=== PATIENT | female | born 1990 | race American Indian/Alaskan Native ===

== ENCOUNTER 2018-11-10 15:57 | Emergency (ER) | payer MEDICAID ==
--- NOTE | 2018-11-10 16:14 | Emergency Department Report ---
Chief Complaint: Fall Stated Complaint: FALL Time Seen by Provider: 11/10/18 16:09 - HPI History of Present Illness: This is a 28 y.o. female that presents with left knee and right hip pain. Patient fell down 4-5 concrete stairs of hotel. Denies loc, numbness or tingling, weakness, swelling, or erythema. - Exam Vital Signs: Vital Signs 11/10/18 16:09 Temperature 98.3 F Pulse Rate 91 H Respiratory 18 Rate Blood Pressure 130/75 O2 Sat by Pulse 100 Oximetry Physical Exam: Vital Signs 11/10/18 16:09 Temperature 98.3 F Pulse Rate 91 H Respiratory 18 Rate Blood Pressure 130/75 O2 Sat by Pulse 100 Oximetry MSE screening note: Focused history and physical exam performed. Due to findings the following was ordered: XR of right hip, left knee, & hcg. ACC for further evaluation. ED Disposition for MSE Condition: Stable
--- NOTE | 2018-11-10 18:32 | XRay Report ---
PROCEDURE: XR HIP 2-3V RT HISTORY: hip pain FINDINGS: AP view of the pelvis was acquired as well as AP and lateral views of the right hip. No fracture is seen in the pelvis or right hip. Hip joint space appears preserved bilaterally. No fazal tructive lesion is seen. IMPRESSION: No fracture is seen in the pelvis or right hip This document is electronically signed by Jacob John MD., November 10 2018 06:31:06 PM ET
--- NOTE | 2018-11-10 18:33 | XRay Report ---
PROCEDURE: XR KNEE 3V LT HISTORY: anterior knee pain FINDINGS: AP, lateral and oblique views of the left knee were acquired and demonstrate no fracture or malalignment of the left knee. Knee joint space appears preserved. No joint effusion is seen. IMPRESSION: No fracture is seen in the left knee This document is electronically signed by Jacob John MD., November 10 2018 06:31:46 PM ET
[2018-11-10] MEDS ORDERED: TYLENOL ONE (19:31)
[2018-11-10] MEDS ORDERED: TYLENOL PO ONE (20:07)
[2018-11-10 20:09] VITALS: BP 110/68
[2018-11-10] MEDS ORDERED: TORADOL IM ONE (20:15)
--- NOTE | 2018-11-10 20:51 | Emergency Department Report ---
ED Fall HPI - General Chief Complaint: Fall Stated Complaint: FALL Time Seen by Provider: 11/10/18 16:09 Source: patient, EMS Mode of arrival: Wheelchair - History of Present Illness Initial Comments: This is a 28 y.o. female that presents with left knee and right hip pain. Patient fell down 4-5 concrete stairs of hotel. Denies loc, numbness or tingling, weakness, swelling, or erythema. 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 Place Fall Occurred: street Loss of Consciousness: none Prolonged Down Time?: no Symptoms Prior to Fall: none Location: pelvis (left hip) Location - Extremities: Left: Knee Severity: moderate Severity scale (0 -10): 5 Quality: aching Context: tripped/slipped Associated Symptoms: denies: neck pain, numbness, weakness, chest paint, shortness of breath, abdominal pain, hematuria, lightheaded, vertigo, confusion - Related Data Previous Rx's Medication Instructions Recorded Last Taken Type Cyclobenzaprine [Flexeril] 10 mg PO TID PRN #30 tablet 11/10/18 Unknown Rx Menthol/Camphor [[place] 1 applicatio TP QID PRN #1 tube 11/10/18 Unknown Rx Ointment] Naproxen [Naprosyn TAB] 500 mg PO BID #30 tablet 11/10/18 Unknown Rx Allergies Allergy/AdvReac Type Severity Reaction Status Date / Time latex Allergy Swelling Verified 11/10/18 16:06 ED Review of Systems ROS: Stated complaint: FALL Other details as noted in HPI Constitutional: denies: chills, fever Eyes: denies: eye pain, eye discharge, vision change ENT: denies: ear pain, throat pain Respiratory: denies: cough, shortness of breath, wheezing Cardiovascular: denies: chest pain, palpitations Endocrine: no symptoms reported Gastrointestinal: denies: abdominal pain, nausea, diarrhea Genitourinary: denies: urgency, dysuria, discharge Musculoskeletal: other (left knee and hip pain ) Skin: lesions (small left anterior knee abrasion ). denies: rash Neurological: denies: headache, weakness, numbness, paresthesias, confusion, abnormal gait, vertigo Psychiatric: denies: anxiety, depression Hematological/Lymphatic: denies: easy bleeding, easy bruising ED Past Medical Hx - Past Medical History Previous Medical History?: No - Surgical History Additional Surgical History: C/S - Social History Smoking Status: Current Every Day Smoker Substance Use Type: None - Medications Home Medications: Home Medications Medication Instructions Recorded Confirmed Last Taken Type Cyclobenzaprine [Flexeril] 10 mg PO TID PRN #30 tablet 11/10/18 Unknown Rx Menthol/Camphor [[place] 1 applicatio TP QID PRN #1 tube 11/10/18 Unknown Rx Ointment] Naproxen [Naprosyn TAB] 500 mg PO BID #30 tablet 11/10/18 Unknown Rx ED Physical Exam - General Limitations: No Limitations General appearance: alert, in no apparent distress - Head Head exam: Present: normocephalic, normal inspection - Expanded Head Exam Expanded Head exam: Absent: laceration, abrasion, contusion, hematoma, racoon eyes, rapp's sign, general tenderness, tenderness of temporal artery, CSF rhinorrhea, CSF otorrhea - Eye Eye exam: Present: normal appearance, PERRL, EOMI Pupils: Present: normal accommodation - ENT ENT exam: Present: normal orophraynx, mucous membranes moist, TM's normal bilaterally - Neck Neck exam: Present: normal inspection, full ROM. Absent: tenderness, meningismus, lymphadenopathy, thyromegaly - Expanded Neck Exam Expanded Neck exam: Absent: tenderness (no posterior vertebral point tenderness ), midline deformity, anterior neck swelling, thyroid mass, carotid bruit, tracheal deviation - Respiratory Respiratory exam: Present: normal lung sounds bilaterally. Absent: respiratory distress, wheezes, rhonchi, chest wall tenderness - Cardiovascular Cardiovascular Exam: Present: regular rate, normal rhythm, normal heart sounds. Absent: systolic murmur, diastolic murmur, rubs, gallop - GI/Abdominal GI/Abdominal exam: Present: soft, normal bowel sounds. Absent: tenderness, rebound, bruit, hernia - Rectal Rectal exam: Present: deferred - Extremities Exam Extremities exam: Present: normal inspection, full ROM, tenderness (left antieror knee tenderness ), normal capillary refill. Absent: pedal edema, joint swelling, calf tenderness - Expanded Lower Extremity Exam Left Knee exam: Present: full ROM, tenderness, abrasion, full knee extension. Absent: swelling, laceration, ecchymosis, deformity, crepidus, dislocation, erythema, effusion, pain w/ pronation/supination, posterior draw sign, pain/laxity with valgus, pain/laxity with varus Lower Leg exam: Present: tenderness Ankle exam: Present: full ROM, tenderness. Absent: swelling Foot/Toe exam: Present: full ROM, tenderness. Absent: swelling Neuro vascular tendon exam: Present: no vascular compromise. Absent: pulse deficit, motor deficit, sensory deficit, tendon deficit Gait: Positive: observed and normal - Back Exam Back exam: Present: normal inspection, full ROM. Absent: tenderness, CVA tenderness (R), CVA tenderness (L), muscle spasm, paraspinal tenderness, vertebral tenderness, rash noted - Neurological Exam Neurological exam: Present: alert, oriented X3, CN II-XII intact, normal gait, reflexes normal. Absent: motor sensory deficit - Psychiatric Psychiatric exam: Present: normal affect, normal mood - Skin Skin exam: Present: warm, dry, intact, normal color. Absent: rash ED Course Vital Signs 11/10/18 11/10/18 11/10/18 16:09 19:32 19:35 Temperature 98.3 F 98.9 F Pulse Rate 91 H 75 Respiratory 18 16 16 Rate Blood Pressure 130/75 Blood Pressure 110/68 [Left] O2 Sat by Pulse 100 100 Oximetry ED Medical Decision Making - Radiology Data Radiology results: report reviewed, image reviewed normal knee and hip xray no fracture no soft tissue abnormality - Medical Decision Making The left knee abrasion left knee strain x-rays negative for knee and hip patient is a premature patient maintains full range of motion of knee there is no swelling or ecchymosis no pop no catch no drawer joint is stable plan loy wrap , nsaids, muscle relaxant , cryotherapy pt will follow up with ortho in 2- 3 days return to ed if symptoms worsen pt verbalized agreement and understanding of same. Critical care attestation.: If time is entered above; I have spent that time in minutes in the direct care of this critically ill patient, excluding procedure time. ED Disposition Clinical Impression: Fall Qualifiers: Encounter type: initial encounter Qualified Code(s): W19.XXXA - Unspecified fall, initial encounter Strain of knee and leg, left Qualifiers: Encounter type: initial encounter Qualified Code(s): S86.912A - Strain of unspecified muscle(s) and tendon(s) at lower leg level, left leg, initial encounter Disposition: TO HOME OR SELFCARE Is pt being admited?: No Does the pt Need Aspirin: No Condition: Stable Instructions: Knee Exercises (GEN), Knee Pain (ED), RICE Therapy (ED) Prescriptions: Cyclobenzaprine [Flexeril] 10 mg PO TID PRN #30 tablet PRN Reason: Muscle Spasm Naproxen [Naprosyn TAB] 500 mg PO BID #30 tablet Menthol/Camphor [[place] Ointment] 1 applicatio TP QID PRN #1 tube PRN Reason: pain Referrals: BASSAM ANDERSEN MD [Staff Physician] - 3-5 Days [place] DMITRY MARCUS MD [Primary Care Provider] - 3-5 Days Forms: Work/School Release Form(ED) Time of Disposition: 21:01
== END 2018-11-10 21:10 | disposition home or self-care (01) ==
LOC: ED 15:57
DX: S86.912A Strain of unspecified muscle(s) and tendon(s) at lower leg level, left leg, initial encounter (principal); M25.551 Pain in right hip; F17.200 Nicotine dependence, unspecified, uncomplicated; Z91.040 Latex allergy status; W10.9XXA Fall (on) (from) unspecified stairs and steps, initial encounter; Y93.89 Activity, other specified; Y92.59 Other trade areas as the place of occurrence of the external cause; Y99.8 Other external cause status
CPT/HCPCS: 36415; 73502; 73562; 84703; 96372; 99284; J1885

== ENCOUNTER 2020-06-09 11:26 | Inpatient (IN) | payer MEDICAID ==
[2020-06-09] MEDS ORDERED: LACTATED RINGERS 500 ML IV ONE (12:50)
[2020-06-09] MEDS: ONDANSETRON 4 MG/2 ML INJ IV PRN (12:54)
[2020-06-09] MEDS ORDERED: TERBUTALINE 1 MG/1 ML INJ SUB-Q SCH (13:00)
[2020-06-09] MEDS: MORPHINE 4 MG/1 ML INJ IV PRN ×2 (13:20→17:10)
[2020-06-09 13:31] LABS: Bilirubin,Urine NEG (Negative); Blood,Urine NEG (Negative); Color,Urine Yellow (Yellow); Mucus,Urine FEW /HPF; WBC,Urine < 1.0 /HPF (0.0-6.0)
[2020-06-09 13:37] LABS: Amphetamine Screen,Urine Negative; Benzodiazepines Screen,Urine Negative; Cocaine Screen,Urine Negative; Methadone Screen,Urine Negative; Opiate Screen,Urine Negative
[2020-06-09 14:03] LABS: Cannabinoid Screen,Urine Positive
[2020-06-09] MEDS ORDERED: PROMETHAZINE 25 MG RECT SUPP PR ONE (14:50)
--- NOTE | 2020-06-09 15:07 | History and Physical Report ---
History of Present Illness Date of examination: 06/09/20 Chief complaint: refractory new onset acute nausea and vomiting History of present illness: 29yo at 29+0/7 weeks by LNURBANO with SERGIO 08/25/2019. Positive FFN on admission. 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 Previous delivery: baby with omphalocele and cardiac defect LGSIL Nausea and vomiting Prior sectionx3, desires repeat Uterine Synechia per [facility] Labs: A/positive H/H 12.4/38.3 LSIL +ve HPV Rubella immune VDRL NR HBsAg negative HIV negative PTL 361 GC/Chlamydia negative Trich negative GCT 106 Past History Past Surgical History: section (prior c/sectionx3) Family/Genetic History: cancer Social history: no significant social history - Obstetrical History Expected Date of Delivery: 08/25/20 Actual Gestation: 29 Week(s) 0 Day(s) : 7 Medications and Allergies Allergies Allergy/AdvReac Type Severity Reaction Status Date / Time latex Allergy Swelling Verified 11/10/18 16:06 Home Medications Medication Instructions Recorded Confirmed Last Taken Type Famotidine [Pepcid] 20 mg PO BID #30 tablet 02/18/20 06/09/20 06/09/20 Rx Ondansetron [Zofran ODT TAB] 4 mg PO Q8HR PRN #30 tab.rapdis 02/18/20 06/09/20 06/09/20 Rx Active Meds: Active Medications Morphine Sulfate (Morphine) 4 mg IV Q4H PRN PRN Reason: Pain , Severe (7-10) Last Admin: 06/09/20 13:20 Dose: 4 mg Documented by: Ondansetron HCl (Zofran) 8 mg IV Q8H PRN PRN Reason: Nausea And Vomiting Last Admin: 06/09/20 12:54 Dose: 8 mg Documented by: Terbutaline Sulfate (Brethine) 0.25 mg SUB-Q Q20MIN CECILIA Stop: 06/11/20 13:01 Review of Systems All systems: negative (nausea and vomiting) - Vital Signs Vital signs: Vital Signs Temp Pulse Resp BP Pulse Ox 98.7 F 88 20 144/81 99 06/09/20 12:45 06/09/20 12:45 06/09/20 12:45 06/09/20 12:45 06/09/20 12:45 Temp Pulse Resp BP Pulse Ox 98.7 F 90 18 136/69 100 06/09/20 12:45 06/09/20 15:00 06/09/20 13:20 06/09/20 13:27 06/09/20 15:00 - Physical Exam Breasts: Positive: deferred Lungs: Positive: Clear to auscultation Abdomen: Positive: normal appearance, normal bowel sounds Genitourinary (Female): Positive: normal external genitalia Extremities: Positive: normal Deep Tendon Reflex Grade: Normal +2 - Obstetrical FHR: category 1 Uterine Contraction Monitor Mode: External Uterine Contraction Frequency (min): q2 Uterine Contraction Pattern: Regular Results Result Diagrams: 06/09/20 19:37 All other labs normal. Assessment and Plan IUP at 29+0/7 weeks acute nausea and vomiting contractions THC positive Elevated Blood Pressure preio c/sectionx3 Plan for admission IV fluids reglan zofran/phenergan/pepcid COVID testing Magnesium sulfate Steroids abx PIH workup US maternal/ well being reassuring overall Grey Alicia MD
[2020-06-09] MEDS ORDERED: FAMOTIDINE 20 MG/2 ML INJ IV ONE (15:19)
[2020-06-09] MEDS ORDERED: LACTATED RINGERS 1,000 ML IV SCH (16:00)
[2020-06-09] MEDS ORDERED: MAGNESIUM SULFATE 4 GM/100 ML BAG IV ONE (16:00)
[2020-06-09] MEDS ORDERED: MAGNESIUM SULFATE 40GM/1000ML 40 GM/1,000 ML BAG IV SCH (16:00)
[2020-06-09] MEDS ORDERED: DOCUSATE SODIUM 100 MG CAP PO PRN (16:00)
[2020-06-09] MEDS ORDERED: ACETAMINOPHEN 325 MG TAB PO PRN (16:00)
[2020-06-09] MEDS: BETAMET ACET/BETAMET NA PH 6 MG/ML INJ 5 ML MDV IM SCH (16:16)
[2020-06-09] MEDS: MORPHINE 4 MG/1 ML INJ IM PRN ×2 (17:22→21:13)
[2020-06-09] MEDS ORDERED: hydrOXYzine HCL 100 MG/2 ML INJ IM ONE (18:00)
[2020-06-09] MEDS ORDERED: BICITRA ORAL LIQD 30ML PO ONE (18:01)
[2020-06-09 20:34] LABS: Alanine Aminotransferase 14 units/L (7-56); Uric Acid 3.4 mg/dL (3.5-7.6)
[2020-06-09 20:35] LABS: Hematocrit 31.7 % (30.3-42.9); Hemoglobin 10.6 gm/dl (10.1-14.3); Mean Corpuscular HGB Conc 33 % (30-34); Mean Corpuscular Volume 98 fl (79-97); Platelet Count 258 K/mm3 (140-440); Red Blood Count 3.23 M/mm3 (3.65-5.03)
[2020-06-09] MEDS ORDERED: BICITRA ORAL LIQD 30ML ONE (20:55)
[2020-06-09] MEDS ORDERED: BICITRA ORAL LIQD 30ML PO PRN (20:57)
[2020-06-09 22:03] LABS: Band Neutrophils # (Manual) 0.3 K/mm3; Basophils % (Manual) 0 % (0.0-1.8); Eosinophils % (Manual) 0 % (0.0-4.3); Total Cells Counted 100
[2020-06-09 22:04] LABS: Platelet Estimate Consistent w Auto; RBC Morphology Normal
[2020-06-09] MEDS ORDERED: ceFAZolin/STERILE WATER 2 GM/20 ML SYRINGE IV ONE (23:00)
[2020-06-09] MEDS ORDERED: MORPHINE 4 MG/1 ML INJ ONE (23:00)
[2020-06-09] MEDS ORDERED: ceFAZolin/Water 2 GM/20 ML 2 GM/20 ML SYRINGE IV ONE ×2 (23:01)
[2020-06-10] MEDS ORDERED: PRENATAL VIT27-FE FUMARATE-FOLIC ACID VIT TAB PO SCH (10:00)
[2020-06-10] MEDS: ONDANSETRON 4 MG/2 ML INJ IV PRN (13:00)
[2020-06-10] MEDS: BETAMET ACET/BETAMET NA PH 6 MG/ML INJ 5 ML MDV IM SCH (15:30)
--- NOTE | 2020-06-10 16:42 | Ultrasound Report ---
ULTRASOUND OBSTETRIC LIMITED INDICATION / CLINICAL INFORMATION: labor. Clinical Gestational Age (GA) in weeks, days: 29, 0 TECHNIQUE: Transabdominal. COMPARISON: Ultrasound dated 02/17/20 FINDINGS: HEART RATE (beats per minute): 140 AMNIOTIC FLUID INDEX (cm) = 17.4 (normal = 7-24 cm) PRESENTATION: Cephalic. ADDITIONAL FINDINGS: Placenta is posterofundal and grade 1-2. IMPRESSION: 1. No significant abnormality. Signer Name: Francy Boss MD Signed: 06/10/2020 2:17 AM Workstation Name: [id number]
[2020-06-10] MEDS ORDERED: BICITRA ORAL LIQD 30ML ONE (17:00)
[2020-06-10] MEDS ORDERED: MORPHINE 4 MG/1 ML INJ ONE (17:00)
[2020-06-10] MEDS ORDERED: ONDANSETRON 4 MG/2 ML INJ ONE (17:00)
[2020-06-10 17:05] VITALS: BP 108/56
--- NOTE | 2020-06-10 17:40 | Discharge Summary ---
Providers - Providers Date of Admission: 06/09/20 15:14 Date of discharge: 06/10/20 Attending physician: MILADIS MOCTEZUMA MD Primary care physician: MILADIS MOCTEZUMA MD Hospitalization Reason for admission: labor, other (N/V) Hospital course: 29 yo at 29w1d presenting with N/V, MARIA ELENA chest discomfort, and contractions. Contractions improved with IVF> +FFN on inital assessment but no evidence of current labor complaints. MARIA ELENA discomfort improved with bicitra, maalox, ompreprazole. Favor GERD. Discharged on Maalox, famotidine, colace. Condition at discharge: Good Disposition: DC-01 TO HOME OR SELFCARE - Discharge Diagnoses (1) GERD (gastroesophageal reflux disease) Status: Acute Qualifiers: Esophagitis presence: without esophagitis Qualified Code(s): K21.9 - Gastro-esophageal reflux disease without esophagitis Plan - Provider Discharge Summary Activity: routine Diet: routine Instructions: routine Additional instructions: [] Smoking cessation referral if applicable(refer to patient education folder for contact #) [] Refer to [facility]'s [facility] Booklet Call your doctor immediately for: * Fever > 100.5 * Heavy vaginal bleeding ( >1 pad per hour) * Severe persistent headache * Shortness of breath * Reddened, hot, painful area to leg or breast * Drainage or odor from incision. * Keep incision clean and dry at all times and follow doctor's instructions regarding bathing/showering - Follow up plan Follow up: MILADIS MOCTEZUMA MD [Primary Care Provider] - 7 Days
[2020-06-10] MEDS ORDERED: PANTOPRAZOLE 40 MG INJ IV SCH (20:00)
--- NOTE | 2020-06-11 08:19 | Ultrasound Report ---
ULTRASOUND BIOPHYSICAL PROFILE ULTRASOUND OB LIMITED INDICATION: WELL BEING TECHNIQUE: Transabdominal ultrasound imaging. COMPARISON: 06/09/2020 COMMENT: This examination is just presented to me for interpretation due to technical factors at the hospital. A preliminary worksheet/report was sent to the ordering physician on the day of the exam. FINDINGS: breathing movement = 2 Gross body movement = 2 tone = 2 Qualitative amniotic fluid volume = 2 Total biophysical score = 8/8 Amniotic fluid index is 18.6 cm. Presentation is cephalic. heart rate is 126 beats per minute. IMPRESSION: biophysical profile equals 8/8. Signer Name: Vargas Fierro Jr, MD Signed: 06/11/2020 8:15 AM Workstation Name: [id number]
== END 2020-06-10 16:00 | disposition home or self-care (01) | DRG 781 ==
LOC: TRG 11:26 → APU 11:59 → LD 15:14 → TRG 15:14 → LD 16:28
PROVIDERS: ADMIT Obstetrics & Gynecology; ATTEND Obstetrics & Gynecology
DX: O99.613 Diseases of the digestive system complicating pregnancy, third trimester (principal); O99.323 Drug use complicating pregnancy, third trimester; Z3A.29 29 weeks gestation of pregnancy; K21.9 Gastro-esophageal reflux disease without esophagitis; O60.03 Preterm labor without delivery, third trimester; Z20.828 Contact with and (suspected) exposure to other viral communicable diseases
CPT/HCPCS: 36415; 76815; 76819; 80307; 81001; 82565; 82731; 83615; 83735; 84450; 84460; 84550; 85007; 85025; 86850; 86900; 86901; G0378; C9113; J0690; J0702; J2270; J2405; J3410; J3475; J7120; U0003

== ENCOUNTER 2020-08-14 14:46 | Outpatient (CLI) | payer MEDICAID ==
[2020-08-14 15:09] VITALS: BP 100/59
[2020-08-14] MEDS ORDERED: LACTATED RINGERS 500 ML IV SCH (15:45)
[2020-08-14] MEDS ORDERED: LACTATED RINGERS 1,000 ML IV ONE (16:47)
[2020-08-14] MEDS ORDERED: LACTATED RINGERS 500 ML IV ONE (17:42)
[2020-08-14] MEDS: TERBUTALINE 1 MG/1 ML INJ SUB-Q SCH ×2 (17:54→18:25)
== END 2020-08-14 19:25 | disposition home or self-care (01) ==
LOC: APU 14:46 → TRG 14:46
PROVIDERS: ATTEND Obstetrics & Gynecology
DX: O21.2 Late vomiting of pregnancy (principal); R10.9 Unspecified abdominal pain; O62.9 Abnormality of forces of labor, unspecified; Z3A.38 38 weeks gestation of pregnancy
CPT/HCPCS: 59025; 96360; 96372; J3105; J7120; 96361

== ENCOUNTER 2020-08-18 09:06 | Inpatient (IN) | payer MEDICAID ==
--- NOTE | 2020-08-18 09:22 | History and Physical Report ---
History of Present Illness Date of examination: 08/18/20 Date of admission: 08/18/20 09:06 Chief complaint: elective repeat section multiparity, desires surgical sterilization History of present illness: 30yo at 30.0 weeks, previous c/sectionx3 for elective repeat section Multiparity, desires surgical sterilization pericardial effusion (4.8mm per [facility]0. and mid VSD per Indu(records in chart). 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 Family/Genetic History: congenital heart defect Social history: no significant social history - Obstetrical History Expected Date of Delivery: 08/25/20 Actual Gestation: 39 Week(s) 0 Day(s) : 7 Medications and Allergies Allergies Allergy/AdvReac Type Severity Reaction Status Date / Time latex Allergy Swelling Verified 11/10/18 16:06 Home Medications Medication Instructions Recorded Confirmed Last Taken Type Famotidine [Pepcid] 20 mg PO BID #30 tablet 02/18/20 06/09/20 06/09/20 Rx Ondansetron [Zofran ODT TAB] 4 mg PO Q8HR PRN #30 tab.rapdis 02/18/20 06/09/20 06/09/20 Rx Active Meds: Active Medications Citric Acid/Sodium Citrate (Bicitra Oral Liqd 30ml) 30 ml PO ONCE ONE Stop: 08/18/20 09:20 Famotidine (Famotidine 20 Mg/2 Ml Inj) 20 mg IV ONCE ONE Stop: 08/18/20 09:20 Lactated Ringer's (Lactated Ringers) 1,000 mls @ 2,250 mls/hr IV PREOP CECILIA Stop: 08/19/20 09:57 Oxytocin/Sodium Chloride (Pitocin/Ns 30 Unit/500ml) 30 units in 500 mls @ 0 mls/hr IV TITR CECILIA; Protocol Cefazolin Sodium (Ancef/Sterile Water 2 Gm/20 Ml) 2 gm in 20 mls @ 80 mls/hr IV PREOP NR; Protocol Metoclopramide HCl (Metoclopramide 10 Mg/2 Ml Inj) 10 mg IV ONCE ONE Stop: 08/18/20 09:20 - Physical Exam Cardiovascular: Regular rate Lungs: Positive: Clear to auscultation Abdomen: Positive: normal appearance Uterus: Positive: other (FH 38cm) Anus/Rectum: Positive: normal perianal skin Deep Tendon Reflex Grade: Normal +2 - Obstetrical FHR: category 1 Results All other labs normal. 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
[2020-08-18] MEDS ORDERED: METOCLOPRAMIDE 10 MG/2 ML INJ IV SCH (09:30)
[2020-08-18] MEDS ORDERED: BICITRA ORAL LIQD 30ML PO SCH (09:30)
[2020-08-18] MEDS ORDERED: FAMOTIDINE 20 MG/2 ML INJ IV SCH (09:30)
[2020-08-18 09:54] LABS: Basophils # (Auto) 0.1 K/mm3 (0.0-0.1); Basophils % (Auto) 0.8 % (0.0-1.8); Eosinophils # (Auto) 0.2 K/mm3 (0.0-0.4); Eosinophils % (Auto) 1.3 % (0.0-4.3); Hematocrit 35.8 % (30.3-42.9); Lymphocytes # (Auto) 2.8 K/mm3 (1.2-5.4); Lymphocytes % (Auto) 21.4 % (13.4-35.0); Mean Corpuscular HGB Conc 34 % (30-34); Mean Corpuscular Volume 98 fl (79-97); Monocytes # (Auto) 0.9 K/mm3 (0.0-0.8); Monocytes % (Auto) 6.8 % (0.0-7.3); Platelet Count 265 K/mm3 (140-440); Red Blood Count 3.65 M/mm3 (3.65-5.03)
[2020-08-18] MEDS: LACTATED RINGERS 1,000 ML IV SCH ×2 (09:58→10:43)
[2020-08-18] MEDS ORDERED: ceFAZolin/Water 2 GM/20 ML 2 GM/20 ML SYRINGE IV NR (10:00)
[2020-08-18] MEDS ORDERED: OXYTOCIN DRIP 30 UNITS/500 ML BAG IV SCH ×2 (10:00→13:00)
--- NOTE | 2020-08-18 10:55 | Anesthesia Day of Surgery ---
Anesthesia Day of Surgery - Day of Surgery Patient Examined: Yes Patient H&P Reviewed: Yes Patient is NPO: Yes Beta Blockers: No Cardiac Clearance: No Pulmonary Clearance: No Taras's Test: N/A
[2020-08-18] MEDS ORDERED: ONDANSETRON 4 MG/2 ML INJ IV PRN ×2 (10:57→12:46)
[2020-08-18] MEDS ORDERED: NALOXONE 0.4 MG/1 ML INJ IV PRN ×2 (10:57→12:46)
--- NOTE | 2020-08-18 10:57 | Anesthesia Consultation ---
Anesthesia Consult and Med Hx Date of service: 08/18/20 - Airway Anesthetic Teeth Evaluation: Poor ROM Head & Neck: Adequate Mental/Hyoid Distance: Adequate Mallampati Class: Class II Intubation Access Assessment: Probably Good - Pulmonary Exam CTA: Yes - Cardiac Exam Cardiac Exam: RRR - Pre-Operative Health Status ASA Pre-Surgery Classification: ASA2 Proposed Anesthetic Plan: Spinal - Pulmonary Hx Smoking: Yes (stop 9 months ago) Hx Asthma: No Hx Respiratory Symptoms: No SOB: No COPD: No Home Oxygen Therapy: No Hx Pneumonia: No Hx Sleep Apnea: No - Cardiovascular System Hx Hypertension: No Hx Coronary Artery Disease: No Hx Heart Attack/AMI: No Hx Angina: No Hx Percutaneous Transluminal Coronary Angioplasty (PTCA): No Hx Cardia Arrhythmia: No Hx Pacemaker: No Hx Internal Defibrillator: No Hx Valvular Heart Disease: No Hx Heart Murmur: No Hx Peripheral Vascular Disease: No - Central Nervous System Hx Neuromuscular Disorder: No Hx Seizures: No CVA: No Hx Back Pain: Yes Hx Psychiatric Problems: No - Gastrointestinal Hx Ulcer: No Hx Gastroesophageal Reflux Disease: Yes - Endocrine Hx Renal Disease: No Hx End Stage Renal Disease: No Hx Cirrhosis: No Hx Liver Disease: No Hx Insulin Dependent Diabetes: No Hx Non-Insulin Dependent Diabetes: No Hx Thyroid Disease: No Hx Hypothyroidism: No Hx Hyperthyroidism: No - Hematic Hx Anemia: Yes Hx Sickle Cell Disease: No - Other Systems Hx Alcohol Use: No Hx Substance Use: No Hx Obesity: No
[2020-08-18] MEDS ORDERED: HYDROmorphone 1 MG/1 ML INJ IV PRN (11:00)
--- NOTE | 2020-08-18 11:20 | Procedure Note ---
OB Delivery Note - Delivery Date of Delivery: 08/18/20 Surgeon: MILADIS MOCTEZUMA Estimated blood loss: other (600ml) - Section Preop diagnosis: repeat , desires sterilization Postop diagnosis: same (delivered) section procedure: repeat low transverse, bilateral tubal ligation Disposition: PACU Complications: none Narrative: Preop diagnosis: IUP at 39.0 weeks, previous section x3, multiparity desires surgical sterilization Postop diagnosis: Same, delivered Procedure: Repeat low transverse section via Pfannenstiel incision, bilateral tubal ligation and modified Reardan fashion Surgeon: Dr. Miladis Moctezuma Anesthesia spinal Complications none EBL 600 ml IV fluids 1200 mL Urine output 200 mL, clear Drains Del Toro to gravity Findings: Viable male with weight 2770gms and 8/9., normal uterus tubes and ovaries bilaterally Procedure: Patient was consented in OB [facility], taken to the operating room where she received excellent spinal anesthesia. She was then placed in the dorsal supine position with a leftward tilt. The abdomen was prepped and draped in a sterile fashion, and a timeout was verified. Adequate anesthesia was confirmed prior to the skin incision. A Pfannenstiel skin incision was made with a scalpel taken down to the underlying structures and the fascia was incised in the midline. The incision was extended laterally with curved Contreras scissors, the superior and inferior aspects of the fascial incisions were grasped with Nakita clamps and the rectus muscles dissected sharply. The abdomen was entered bluntly in the midline carried down inferiorly with good visualization of the bladder. The vesicouterine peritoneum was tented with Nauruan forceps and incised in the midline with Metzenbaum scissors and the vesicouterine peritoneum taken down sharply. Bladder blade was inserted, the uterine incision was made sharply with a scalpel. The inferior and superior aspect of the uterine incisions were extended bluntly, the baby's head was delivered atraumatically. The remainder of the delivery was atraumatic, a loose nuchal cord x2 was reduced during delivery. The cord was clamped and cut and baby handed to waiting NICU team. An intact placenta with three-vessel cord delivered manually. The uterus was then cleared of all clots and debris and the uterus exteriorized. The uterine incision was closed with 0 chromic with excellent hemostasis. The fallopian tubes were bilaterally suture ligated in modified Reardan fashion. The abdomen was then irrigated with warm normal saline and the uterus placed back into the abdomen atraumatically. A second look at the uterine incision assured hemostasis. The peritoneum was closed with 3-0 Vicryl, the rectus muscles approximated with 3-0 Vicryl, and the fascia closed with 0 Vicryl in the usual fashion. The skin closed with alisa as patient was moving on the OR table. A pressure dressing was applied. All sponge needle and instrument counts were correct x2. There were no complications. Mom and baby stable to the recovery area. EBL 600 mL Grey Moctezuma MD
[2020-08-18] MEDS ORDERED: SODIUM CHLORIDE 0.9% IRR 1,500 ML BOTTLE IR ONE (11:40)
[2020-08-18] MEDS ORDERED: WATER FOR IRRIG STERILE 1,500 ML BOTTLE IR ONE (11:40)
[2020-08-18] MEDS ORDERED: KETAMINE/STERILE WATER 50 MG/ML SYRINGE ONE (11:43)
[2020-08-18] MEDS ORDERED: MIDAZOLAM 5 MG/5 ML INJ MDV IV ONE (11:44)
[2020-08-18] MEDS ORDERED: propofoL 200 MG/20 ML VIAL IV ONE (12:11)
[2020-08-18] MEDS ORDERED: LANOLIN/ZINC/DIMETHICONE (LANSINOH) 7 GM TP PRN (12:46)
[2020-08-18] MEDS ORDERED: MORPHINE 2 MG/1 ML INJ IV PRN (12:46)
[2020-08-18] MEDS ORDERED: WITCH HAZEL/ GLYCERIN PAD TP PRN (12:46)
--- NOTE | 2020-08-18 12:51 | Progress Note ---
Spinal Anesthesia Block - Spinal Anesthesia Block Start Time: : Stop Time: : Performed by:: JEREMÍAS CORRIGAN Procedure: Patient IDed, H&P reviewed, all questions and concerns were answered, and consent was signed. Timeout was performed at bedside. Patient in sitting position. Sterile prep and drape was performed. [3] ml of 1% lidocaine skin wheal at L[3]- L [4]. Needle introducer advanced. 25 gauge spinal needle advanced. Clear, free flowing CSF. negative blood, negative paresthesia. Spinal dose given. All needles removed. Patient tolerated procedure.
--- NOTE | 2020-08-18 12:52 | Post Anesthesia Evaluation ---
- Post Anesthesia Evaluation Patient Participated: Yes Airway Patent: Yes Stable Respiratory Function: Yes Nausea/Vomiting: No Temp > 96.8F: Yes Pain Manageable: Yes Adequeate Hydration: Yes Anesthesia Complications: No Block Receding Appropriately: Yes Patient on Ventilator: No
--- NOTE | 2020-08-18 12:52 | Progress Note ---
Subjective Date of service: 08/18/20 Principal diagnosis: Ultrasound Guided Bilateral TAP Block Interval history: Patient consented for TAP block for post surgical pain management. Patient identified, monitors placed, and time out performed. TAP identified bilaterally via ultrasound. Skin prepped bilaterally with [chlorhexidine] and [22g stimuplex] needle advanced to the TAP. [Marcaine 0.22% 35ml] injected under ultrasound guidance on the [left] side. [Marcaine 0.22% 35ml] injected under ultrasound guidance on the [right] side. Negative aspiration every 5mL, No change in heart rate or rhythm. Patient tolerated the procedure well. No apparent complications seen Objective - Constitutional Vitals: Vital Signs - 12hr 08/18/20 08/18/20 08/18/20 10:03 10:04 10:08 Temperature 98.7 F Pulse Rate 69 68 71 Respiratory 16 Rate Blood Pressure 112/58 Blood Pressure 112/58 [Left] O2 Sat by Pulse 99 99 97 Oximetry 08/18/20 08/18/20 08/18/20 10:13 10:18 10:23 Temperature Pulse Rate 77 89 79 Respiratory Rate Blood Pressure Blood Pressure [Left] O2 Sat by Pulse 100 100 100 Oximetry 08/18/20 08/18/20 08/18/20 10:28 10:33 10:38 Temperature Pulse Rate 84 71 81 Respiratory Rate Blood Pressure Blood Pressure [Left] O2 Sat by Pulse 99 100 99 Oximetry 08/18/20 08/18/20 08/18/20 10:43 10:48 10:53 Temperature Pulse Rate 70 73 76 Respiratory Rate Blood Pressure Blood Pressure [Left] O2 Sat by Pulse 100 99 99 Oximetry 08/18/20 08/18/20 10:58 11:03 Temperature Pulse Rate 75 76 Respiratory Rate Blood Pressure Blood Pressure [Left] O2 Sat by Pulse 97 99 Oximetry - Labs CBC & Chem 7: 08/18/20 09:45 Labs: Abnormal lab results 08/18/20 Range/Units 09:45 WBC 13.3 H (4.5-11.0) K/mm3 MCV 98 H (79-97) fl MCH 33 H (28-32) pg [place] # (Auto) 0.9 H (0.0-0.8) K/mm3 Seg Neutrophils # 9.2 H (1.8-7.7) K/mm3
[2020-08-18] MEDS: MORPHINE 4 MG/1 ML INJ IV PRN ×3 (14:28→22:23)
[2020-08-18] MEDS ORDERED: KETOROLAC 30 MG/1 ML INJ IV ONE (15:18)
[2020-08-18] MEDS: HYDROcodone/ACETAMINOPHEN 5-325 MG TAB PO PRN (21:34)
[2020-08-19 02:13] LABS: Hematocrit 30.9 % (30.3-42.9); Hemoglobin 10.3 gm/dl (10.1-14.3)
[2020-08-19] MEDS: MORPHINE 4 MG/1 ML INJ IV PRN ×2 (02:39→06:21)
[2020-08-19] MEDS: HYDROcodone/ACETAMINOPHEN 5-325 MG TAB PO PRN ×5 (04:31→23:38)
--- NOTE | 2020-08-19 10:58 | Progress Note ---
Assessment and Plan A: S/P repeat LTCS with BTL p: Continue monitoring with routine pp orders Encourage ambulation D/C home in 24-48 hours if stable Subjective - Subjective Date of service: 08/19/20 Principal diagnosis: Ultrasound Guided Bilateral TAP Block Patient reports: appetite normal, voiding normally, pain well controlled, ambulating normally : doing well, bottle feeding Objective - Vital Signs Latest vital signs: Vital Signs Temp Pulse Resp BP BP Pulse Ox 08/19/20 08:50 98.5 F 71 18 116/65 98 08/19/20 04:35 97.9 F 75 18 108/58 100 08/19/20 00:41 98.0 F 61 16 113/56 100 08/18/20 21:06 98.1 F 61 16 112/64 100 08/18/20 18:40 20 08/18/20 16:45 98.2 F 74 18 111/72 99 08/18/20 15:30 18 08/18/20 14:28 18 08/18/20 14:19 98.2 F 75 18 105/70 99 08/18/20 13:50 97.7 F 68 20 111/74 98 08/18/20 13:40 97.5 F L 69 20 111/69 98 08/18/20 13:25 68 20 106/63 98 08/18/20 13:10 65 18 115/73 99 08/18/20 12:55 69 20 111/61 98 08/18/20 12:50 69 20 116/60 98 08/18/20 12:44 97.2 F L 69 20 117/64 98 08/18/20 11:03 76 99 08/18/20 10:58 75 97 Intake and Output 08/18/20 08/19/20 08/19/20 22:59 06:59 14:59 Intake Total 120 840 Output Total 800 1700 Balance -680 -860 Intake: Oral 120 Intake, Free Water 840 Output: Urine 800 1700 Indwelling Catheter 800 500 Void 1200 Other: Total, Intake Amount 120 Total, Output Amount 800 800 # Voids Void 2 - Exam Breasts: Present: normal Abdomen: Present: normal appearance, soft, normal bowel sounds, other (passing gas) Vulva: both: normal Uterus: Present: normal, firm, fundal height below umbilicus Extremities: Present: normal Incision: Present: normal, dry, intact, dressed - Labs Labs: Abnormal lab results 08/18/20 Range/Units 16:58 POC Glucose 36 L (70-105) mg/dL
[2020-08-19] MEDS: FAMOTIDINE 20 MG TAB PO SCH ×2 (13:53→22:00)
[2020-08-19] MEDS ORDERED: MAGNESIUM HYDROXIDE (MOM) ORAL LIQD UDC PO PRN (21:34)
[2020-08-19] MEDS: SIMETHICONE 80 MG CHEW TAB PO PRN (21:55)
[2020-08-19] MEDS: IBUPROFEN 600 MG TAB PO PRN (21:55)
[2020-08-20] MEDS: IBUPROFEN 600 MG TAB PO PRN ×2 (03:40→09:58)
[2020-08-20] MEDS: SIMETHICONE 80 MG CHEW TAB PO PRN ×2 (06:36→12:07)
[2020-08-20] MEDS: HYDROcodone/ACETAMINOPHEN 5-325 MG TAB PO PRN ×2 (06:36→12:07)
[2020-08-20] MEDS: FAMOTIDINE 20 MG TAB PO SCH (09:58)
--- NOTE | 2020-08-20 12:28 | Progress Note ---
Assessment and Plan A: POD #2 [place] P: Follow Routine PostOp Orders D/C Home today per patient request RTO in One week Subjective - Subjective Date of service: 08/20/20 Principal diagnosis: Ultrasound Guided Bilateral TAP Block Patient reports: appetite normal, voiding normally, pain well controlled, flatus, ambulating normally : doing well, bottle feeding (and ) Objective - Vital Signs Latest vital signs: Vital Signs Temp Pulse Resp BP BP Pulse Ox 08/20/20 09:58 18 08/20/20 08:31 98.6 F 67 18 116/62 100 08/20/20 00:51 98.0 F 73 18 113/50 98 08/19/20 16:55 98.2 F 82 18 118/73 98 Intake and Output 08/19/20 08/20/20 08/20/20 22:59 06:59 14:59 Intake Total 120 Output Total 350 Balance -230 Intake: Oral 120 Output: Urine 350 Void 350 Other: Total, Intake Amount 120 Total, Output Amount 350 # Voids Void 3 - Exam Breasts: Present: normal Cardiovascular: Present: Regular rate Lungs: Present: Clear to auscultation, Normal air movement Abdomen: Present: normal appearance, soft, normal bowel sounds Uterus: Present: normal, firm, fundal height below umbilicus Extremities: Present: normal Incision: Present: normal, dry, intact, other (Staple in Place)
--- NOTE | 2020-08-20 12:29 | Discharge Summary ---
Providers - Providers Date of Admission: 08/18/20 09:06 Date of discharge: 08/20/20 Attending physician: MILADIS MOCTEZUMA MD Primary care physician: MILADIS MOCTEZUMA MD Hospitalization Reason for admission: section Delivery: Procedure: bilateral tubal ligation, repeat low transverse Episiotomy: none Laceration: none Incision: normal, dry, intact Other procedures: none complications: none Discharge diagnosis: IUP at term delivered [place] baby: male Condition at discharge: Good Disposition: DC-01 TO HOME OR SELFCARE Plan - Discharge Medications Prescriptions: Ibuprofen [Motrin] 600 mg PO Q8H PRN #60 tablet PRN Reason: Pain oxyCODONE /ACETAMINOPHEN [Percocet 5/325] 1 tab PO Q6HR PRN #20 tablet PRN Reason: Pain - Provider Discharge Summary Activity: routine, no sex for 6 weeks, no heavy lifting 4 weeks, no strenuous exercise Diet: routine Instructions: routine Additional instructions: [] Smoking cessation referral if applicable(refer to patient education folder for contact #) [] Refer to [facility] Booklet Call your doctor immediately for: * Fever > 100.5 * Heavy vaginal bleeding ( >1 pad per hour) * Severe persistent headache * Shortness of breath * Reddened, hot, painful area to leg or breast * Drainage or odor from incision. * Keep incision clean and dry at all times and follow doctor's instructions regarding bathing/showering - Follow up plan Follow up: MILADIS MOCTEZUMA MD [Primary Care Provider] - 7 Days Forms: [facility] Discharge Summary
[2020-08-20 15:19] VITALS: BP 122/75
== END 2020-08-20 14:35 | disposition home or self-care (01) | DRG 765 ==
LOC: APU 09:06 → OB 13:30
PROVIDERS: ADMIT Obstetrics & Gynecology; ATTEND Obstetrics & Gynecology
PROC: 10D00Z1 Extraction of Products of Conception, Low, Open Approach (ICD-10-PCS; principal; 2020-08-18)
PROC: 0UB70ZZ Excision of Bilateral Fallopian Tubes, Open Approach (ICD-10-PCS; 2020-08-18)
PROC: 3E0T3BZ Introduction of Anesthetic Agent into Peripheral Nerves and Plexi, Percutaneous Approach (ICD-10-PCS; 2020-08-18)
DX: O34.219 Maternal care for unspecified type scar from previous cesarean delivery (principal); O98.32 Other infections with a predominantly sexual mode of transmission complicating childbirth; O99.02 Anemia complicating childbirth; A60.09 Herpesviral infection of other urogenital tract; Z3A.39 39 weeks gestation of pregnancy; Z37.0 Single live birth; Z82.49 Family history of ischemic heart disease and other diseases of the circulatory system; Z20.822 Contact with and (suspected) exposure to COVID-19; Z30.2 Encounter for sterilization
CPT/HCPCS: 36415; 82962; 85014; 85018; 85025; 86850; 86900; 86901; 88305; G0378; A6250; J1885; J2250; J2270; J2704; J2765; J3490; J7120; U0003